=== PATIENT | male | born 1995 | race Caucasian/White ===

== ENCOUNTER 2018-08-17 22:14 | Emergency (ER) | payer SELFPAY ==
[~2018-08-17] VITALS: Ht 167.6 cm; Wt 64.0 kg
[2018-08-17 22:16] VITALS: BP 131/76
== END 2018-08-18 02:00 | disposition left against medical advice (07) ==
LOC: ER 22:14
DX: Z53.21 Procedure and treatment not carried out due to patient leaving prior to being seen by health care provider (principal)

== ENCOUNTER 2021-01-10 21:38 | Emergency (ER) | payer SELFPAY ==
[~2021-01-10] VITALS: Ht 167.6 cm; Wt 69.0 kg
[2021-01-10 21:39] VITALS: BP 159/114
== END 2021-01-10 22:58 | disposition left against medical advice (07) ==
LOC: ER 21:38
DX: Z53.21 Procedure and treatment not carried out due to patient leaving prior to being seen by health care provider (principal); I49.9 Cardiac arrhythmia, unspecified
CPT/HCPCS: 93005